=== PATIENT | male | born 1980 | race Caucasian/White ===

== ENCOUNTER 2017-04-26 11:11 | Emergency (ER) | payer SELFPAY ==
[~2017-04-26] VITALS: Ht 185.4 cm; Wt 144.3 kg
[2017-04-26 11:16] VITALS: TEMP 37.2; Ht 185.4 cm; Wt 144.3 kg
[2017-04-26] MEDS ORDERED: SODIUM CHLORIDE 0.9% 1000ML 1,000 ML IV ONE (11:30)
[2017-04-26] MEDS ORDERED: KETOROLAC TROMETHAMINE 30 MG/ML VIAL IV STA (11:30)
[2017-04-26] MEDS ORDERED: PROCHLORPERAZINE 5 MG/ML 2 ML VIAL IV STA (11:30)
--- NOTE | 2017-04-26 11:32 | EMERGENCY ROOM VISIT NOTE ---
History Report prepared by Lisa: Ciera Mena Under the Supervision of: Dr. Kenneth Uriostegui M.D. First contact with patient: 11:24 Chief Complaint: HEADACHE Stated Complaint: HEADACHE History of Present Illness The patient is a 36 year old male who presents to the Emergency Room with complaints of a constant right temporal headache beginning 1 hour prior to arrival. He rates his pain as 6/10 in severity. The pain radiates down into his neck. The patient is experiencing light sensitivity and is nauseated. The patient denies injury or trauma to his head, recent fevers, chills, changes in vision or hearing. The patient did take Excedrin but experienced no relief of his pain. He has a history of sinus infections but states that this pain is different and more severe. Source of History: patient Onset: 1 hour PRESSER ALL AROUND Position: head Quality: other (headache) Timing: constant Associated Symptoms: + neck pain, + nausea, No fevers, No chills Note: The patient is experiencing light sensitivity. Review of Systems All systems have been listed, reviewed, and are negative other than those previously mentioned. Please see Additional Medical History Sheet. Past Medical & Surgical Medical Problems: (1) No known health problems Family History Patient reports no known family medical history. Social History Smoking Status: Current Every Day Smoker Marital Status: single Housing Status: lives alone Occupation Status: employed Current/Historical Medications Scheduled PRN Jbezdss-Chethvkmqnmpk-Bjuatjcy (Excedrin Migraine), 1 TAB PO UD PRN for Headache Ibuprofen (Motrin), 600 MG PO Q6H PRN for Pain Allergies Coded Allergies: No Known Allergies (Unverified , 04/26/17) Physical Exam Vital Signs Date Time Temp Pulse Resp B/P (MAP) Pulse Ox O2 Delivery O2 Flow Rate FiO2 04/26/17 13:28 92 17 142/75 95 Room Air 04/26/17 12:05 95 16 146/94 95 04/26/17 11:16 37.2 93 19 172/98 96 Room Air Physical Exam GENERAL: Patient awake, alert, oriented x 3. Patient follows commands. Patient does not appear toxic. Patient is adequately hydrated and well- nourished. SKIN: No erythema, pallor, cyanosis or rash HEENT: Normal head, pupils equal, reactive to light and accommodation. Jose L tender over right cheek and lateral to right eye. Ears normal. Oral cavity and posterior pharynx appear normal. Neck: Tender over mid cervical spine on right side, no neck vein distention. LUNGS: Clear to auscultation. No wheezes, no rales, no rhonchi. HEART: No murmurs. No gallops. No rubs ABDOMEN: Soft, nontender. EXTREMITIES: Good motor sensory function distally. NEUROLOGIC: Cranial nerves II-XII within normal limits. No gross motor sensory function deficits. Medical Decision & Procedures ER Provider Diagnostic Interpretation: CT results are interpretations by the radiologist and per my review. CERVICAL SPINE CT CT DOSE: 458.84 mGy.cm HISTORY: Pain. Neuropathy. cervical radiculopathy TECHNIQUE: Multiaxial CT images of the cervical spine were performed and reformatted in the sagittal and coronal plane without the use of contrast. COMPARISON: None. FINDINGS: No fractures. No subluxation. Prevertebral soft tissues and the C1-C2 interval are intact. No pneumothorax. IMPRESSION: No fractures within the cervical spine. Normal study Electronically signed by: Jose L Tsang M.D. 04/26/2017 11:56 AM Dictated Date/Time: 04/26/2017 11:55 AM Laboratory Results 04/26/17 11:40 Red Blood Count 4.73, Mean Corpuscular Volume 87.7, Mean Corpuscular Hemoglobin 30.0, Mean Corpuscular Hemoglobin Concent 34.2, Mean Platelet Volume 8.4, Neutrophils (%) (Auto) 61.2, Lymphocytes (%) (Auto) 28.3, Monocytes (%) (Auto) 7.1, Eosinophils (%) (Auto) 2.3, Basophils (%) (Auto) 0.4, Neutrophils # (Auto) 6.45, Lymphocytes # (Auto) 2.98, Monocytes # (Auto) 0.75, Eosinophils # (Auto) 0.24, Basophils # (Auto) 0.04 04/26/17 11:40 Test 04/26/17 11:40 White Blood Count 10.53 K/uL (4.8-10.8) Red Blood Count 4.73 M/uL (4.7-6.1) Hemoglobin 14.2 g/dL (14.0-18.0) Hematocrit 41.5 % (42-52) Mean Corpuscular Volume 87.7 fL (80-100) Mean Corpuscular Hemoglobin 30.0 pg (25-34) Mean Corpuscular Hemoglobin Concent 34.2 g/dl (32-36) Platelet Count 317 K/uL (130-400) Mean Platelet Volume 8.4 fL (7.4-10.4) Neutrophils (%) (Auto) 61.2 % Lymphocytes (%) (Auto) 28.3 % Monocytes (%) (Auto) 7.1 % Eosinophils (%) (Auto) 2.3 % Basophils (%) (Auto) 0.4 % Neutrophils # (Auto) 6.45 K/uL (1.4-6.5) Lymphocytes # (Auto) 2.98 K/uL (1.2-3.4) Monocytes # (Auto) 0.75 K/uL (0.11-0.59) Eosinophils # (Auto) 0.24 K/uL (0-0.5) Basophils # (Auto) 0.04 K/uL (0-0.2) RDW Standard Deviation 41.3 fL (36.4-46.3) RDW Coefficient of Variation 12.9 % (11.5-14.5) Immature Granulocyte % (Auto) 0.7 % Immature Granulocyte # (Auto) 0.07 K/uL (0.00-0.02) Anion Gap 7.0 mmol/L (3-11) Est Creatinine Clear Calc Drug Dose 159.2 ml/min Estimated GFR () 118.7 Estimated GFR (Non- 102.4 BUN/Creatinine Ratio 12.0 (10-20) Calcium Level 9.1 mg/dl (8.5-10.1) Laboratory results as stated above per my review. Medications Administered Medications (Trade) Dose Ordered Sig/Fernandez Route Start Time Stop Time Status Last Admin Dose Admin Ketorolac Tromethamine (Toradol Inj) 30 mg NOW STAT IV 04/26/17 11:30 04/26/17 11:31 DC 04/26/17 11:40 30 MG Prochlorperazine Edisylate (Compazine Inj) 10 mg NOW STAT IV 04/26/17 11:30 04/26/17 11:31 DC 04/26/17 11:40 10 MG Sodium Chloride 1,000 ml @ 1,000 mls/hr Q1H ONCE IV 04/26/17 11:30 04/26/17 12:29 DC 04/26/17 11:39 1,000 MLS/HR ED Course 1124: Past medical records reviewed. The patient was evaluated in room A3. A complete history and physical examination was performed. 1130: Sodium Chloride 1,000 ml @ 1,000 mls/hr IV, Compazine Inj 10 mg IV, Toradol Inj 30 mg IV. 1247: I checked on the patient and he was sleeping. I woke him up and he notes slight pain but is feeling much better. He is going to sleep more before discharge. 1328: The patient told the nurse that he thinks his pain is coming from his tooth maybe. I reexamined the patient and he has no signs of dental abscess, dental carries, no inflammation or infection in the mouth. He states that he is feeling much better and will follow up with a dentist. He will be given Ibuprofen for the pain. 1332: Upon reevaluation, the patient appeared to have improvement of his symptoms. I discussed today's findings with him. He verbalized agreement of the treatment plan. He was discharged home. Medical Decision Nurses notes reviewed. Medical history sheet reviewed. Differential diagnosis includes but is not limited to: trigeminal neuralgia, sinus headache, migraine headache, odontalgia, cervical radiculopathy. Medication Reconciliation: I attest that I have personally reviewed the patient' s current medication list. Blood Pressure Screening: Patient was found to have a slightly elevated blood pressure due to circumstances. I do not believe that the patient requires hypertension monitoring. On initial exam the patient had significant pain on the right side of the cervical spine. Since then he's been treated with the above medications and felt significantly better. He felt that his neck was no longer tight and the facial pain almost completely disappeared. On examination of his mouth there is no evidence of an acute infection or abscess. The patient will be treated with ibuprofen which will allow him to continue driving. The patient was encouraged to follow-up with a dentist to make sure there is no dental cause for his pain. Impression Primary Impression: Cervical radiculopathy Scribe Attestation The scribe's documentation has been prepared under my direction and personally reviewed by me in its entirety. I confirm that the note above accurately reflects all work, treatment, procedures, and medical decision making performed by me. Departure Information Dispostion Home / Self-Care Prescriptions Ibuprofen (MOTRIN) 600 Mg Tab 600 MG PO Q6H Y for Pain, #30 TAB TAKE WITH FOOD Prov: Kenneth Uriostegui M.D. 04/26/17 Referrals No Doctor, Assigned (PCP) Forms HOME CARE DOCUMENTATION FORM, IMPORTANT VISIT INFORMATION Patient Instructions My [facility] [employer] Additional Instructions 600 mg ibuprofen every 6 hours until pain has resolved. Take ibuprofen with food. Apply heat intermittently to the back of her neck. Follow-up with the dentist as soon as possible.
[2017-04-26 11:49] LABS: BASO % 0.4 %; BASO ABS # 0.04 K/uL (0-0.2); COMPLETE YES; EOS % 2.3 %; HEMATOCRIT 41.5 % (42-52); IG% 0.7 %; LYMPH % 28.3 %; LYMPH ABS # 2.98 K/uL (1.2-3.4); MEAN CELL VOLUME 87.7 fL (80-100); MEAN CORPUSCULAR HGB CONC 34.2 g/dl (32-36); MEAN PLATELET VOLUME 8.4 fL (7.4-10.4); MONO % 7.1 %; NEUT % 61.2 %; PLATELET COUNT 317 K/uL (130-400); RED BLOOD COUNT 4.73 M/uL (4.7-6.1); WHITE BLOOD COUNT 10.53 K/uL (4.8-10.8)
--- NOTE | 2017-04-26 11:57 | DIAGNOSTIC IMAGING REPORT ---
CERVICAL SPINE CT CT DOSE: 458.84 mGy.cm HISTORY: Pain. Neuropathy. cervical radiculopathy TECHNIQUE: Multiaxial CT images of the cervical spine were performed and reformatted in the sagittal and coronal plane without the use of contrast. COMPARISON: None. FINDINGS: No fractures. No subluxation. Prevertebral soft tissues and the C1-C2 interval are intact. No pneumothorax. IMPRESSION: No fractures within the cervical spine. Normal study Electronically signed by: Jose L Tsang M.D. 04/26/2017 11:56 AM Dictated Date/Time: 04/26/2017 11:55 AM
[2017-04-26 12:01] LABS: CALCIUM 9.1 mg/dl (8.5-10.1); CREATININE 0.94 mg/dl (0.60-1.40)
[2017-04-26 13:28] VITALS: BP 142/75; PULSE 92; O2SAT 95
[2017-04-26] MEDS ORDERED: IBUP-1450 PO (13:32)
[2017-04-26] MEDS ORDERED: ASPI-390 PO (13:38)
== END 2017-04-26 13:48 | disposition home or self-care (01) ==
LOC: EDBD 11:11 → C.EDA 11:13
DX: M54.12 Radiculopathy, cervical region (principal); F17.200 Nicotine dependence, unspecified, uncomplicated